=== PATIENT | male | born 1930 | race Caucasian/White ===

== ENCOUNTER 2017-01-23 15:09 | Emergency (ER) | payer SELFPAY | END 2017-01-23 16:30 | disposition left against medical advice (07) | LOC: E/R 15:09 | DX: Z53.21 Procedure and treatment not carried out due to patient leaving prior to being seen by health care provider (principal) ==

== ENCOUNTER 2017-02-04 20:54 | Emergency (ER) | payer MEDICARE, BC ==
[~2017-02-04] VITALS: Ht 167.6 cm; Wt 65.4 kg
[2017-02-04 20:59] VITALS: Ht 167.6 cm; Wt 65.4 kg
--- NOTE | 2017-02-04 22:30 | RADRPT ---
PROCEDURE: CT Brain without contrast. CLINICAL INDICATION: Trauma due to a fall. Headache. TECHNIQUE: A CT of the brain without contrast was performed utilizing axial sections from the skul l base through the vertex. The patient was scanned without intravenous contrast enhancement. Sagitta l and coronal reformatted images were obtained using the data from the axial images. Total exam DLP is 720.23 mGy-cm. CTDIvol is 43.58 mGy. One or more of the following dose reduction techniques were used: Automated exposure control, adjustment of the mA and/or kV according to patient size, use of iterative reconstruction technique. DICOM images are available. COMPARISON: None available. FINDINGS: There is normal [place]-white matter differentiation. There is enlargement of the ventricles and subarachnoid spaces consistent with atrophy. There is decreased attenuation of the periventricular white matter consistent with microangiopathic ischemic change. 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 There is no tatiana dence of recent infarct. There is no intracranial hemorrhage or space-occupying lesion. There are vascular calcifications consistent with atherosclerosis. There is no skull fracture or lytic lesion. IMPRESSION: 1. Atrophy. 2. Microangiopathic ischemic change. 3. Atherosclerosis. 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 5. No intracranial hemorrhage. 6. Otherwise unremarkable noncontrast CT scan of the brain. RPTAT: QQ .William Ly MD, MD Date Time Electronically viewed and signed by .William Ly MD, on 02/04/2017 22:29 .R/
--- NOTE | 2017-02-04 22:39 | RADRPT ---
PROCEDURE: CT Cervical Spine without contrast. CLINICAL INDICATION: Trauma. Neck pain. TECHNIQUE: Helical axial sections were obtained through the cervical spine without intravenous con trast enhancement. Sagittal and coronal reformatted images were accomplished using the data from th e axial images. Total exam DLP is 456.98 mGy-cm. CTDIvol is 22.17 mGy. One or more of the followi ng dose reduction techniques were used: Automated exposure control, adjustment of the mA and/or kV a ccording to patient size, use of iterative reconstruction technique. DICOM images are available. COMPARISON: No prior studies are available for comparison. FINDINGS: There is normal stature and alignment of the vertebrae. There is no fracture. There are degenerative changes with disc space narrowing and osteophytes at C5-6 and C6-7. There is no lytic or blastic lesion. The paravertebral soft tissues are normal. IMPRESSION: 1. Degenerative changes at C5-6 and C6-7. 2. No fracture. 3. Otherwise unremarkable CT scan of the cervical spine. RPTAT: QQ .William Ly MD, MD Date Time Electronically viewed and signed by .William Ly MD, on 02/04/2017 22:38 .R/
[2017-02-04] MEDS ORDERED: ONDANSETRON 4 MG INJ ONE (23:20)
[2017-02-04] MEDS ORDERED: PANTOPRAZOLE 40 MG INJ ONE (23:21)
[2017-02-04] MEDS ORDERED: ONDANSETRON 4 MG INJ IV STA (23:25)
--- NOTE | 2017-02-04 23:27 | ERD ---
ER Documentation Chief Complaint Chief Complaint sp ground level fall face down, facial injuries. no loc HPI 86-year-old male status post ground-level fall. Patient fell face down. No loss conscious. No nausea vomiting or chills. No other current complaints. Mild abrasions noted on the face. Witnessed fall by family. ROS All systems reviewed and are negative except as per history of present illness. Allergies Allergies: Coded Allergies: Uviwqvz-Kfv-Pvz Reductase Inhibitor (Verified Allergy, Unknown, 02/04/17) Sulfa (Sulfonamide Antibiotics) (Verified Allergy, Unknown, 02/04/17) Uncoded Allergies: EGGS, TOMATOES (Allergy, Unknown, 02/04/17) PMhx/Soc Anesthesia Reaction: No Hx Neurological Disorder: Yes (PARKINSONS DISEASE ) Hx Respiratory Disorders: No Hx Cardiac Disorders: No Hx Psychiatric Problems: No Hx Miscellaneous Medical Probl: No Hx Alcohol Use: No Hx Substance Use: No Hx Tobacco Use: No Smoking Status: Never smoker Physical Exam Vitals Vital Signs Date Time Temp Pulse Resp B/P Pulse Ox O2 Delivery O2 Flow Rate FiO2 02/04/17 21:27 98.2 78 20 151/89 98 Room Air 02/04/17 20:59 98.2 71 20 138/64 98 Physical Exam Const: [] Head: Atraumatic Eyes: Normal Conjunctiva ENT: Normal External Ears, Nose and Mouth. Neck: Full range of motion..~ No meningismus. Resp: Clear to auscultation bilaterally Cardio: Regular rate and rhythm, no murmurs Abd: Soft, non tender, non distended. Normal bowel sounds Skin: No petechiae or rashes Back: No midline or flank tenderness Ext: No cyanosis, or edema Neur: Awake and alert Psych: Normal Mood and Affect Results 24 hrs Current Medications Medications (Trade) Dose Ordered Sig/Sommer Route PRN Reason Start Time Stop Time Status Last Admin Dose Admin Acetaminophen/ Hydrocodone Bitart ([place] (5/325)) 1 tab ONCE ONCE PO 02/04/17 23:30 02/04/17 23:31 Ondansetron HCl (Zofran Inj) 4 mg STK-MED ONCE .ROUTE 02/04/17 23:20 02/04/17 23:21 DC Pantoprazole (Protonix Iv) 40 mg STK-MED ONCE .ROUTE 02/04/17 23:21 02/04/17 23:22 DC Procedures/MDM Medical decision-making: Very pleasant patient with mechanical fall. No evidence of intracranial hemorrhage. At this point clinically stable. Patient will be discharged home Departure Diagnosis: Primary Impression: Fall Encounter type: initial encounter Qualified Code: W19.XXXA - Fall, initial encounter Condition: Stable DEJA THOMAS Feb 04, 2017 23:27
[2017-02-04] MEDS ORDERED: HYDROCODONE/APAP (5/325) TAB PO ONE (23:30)
[2017-02-04] MEDS ORDERED: PANTOPRAZOLE 40 MG INJ IV ONE (23:30)
[2017-02-04 23:51] VITALS: BP 141/80; PULSE 80; RESP 19; TEMP 98.2
== END 2017-02-04 23:54 | disposition home or self-care (01) ==
LOC: E/R 20:54
DX: S00.81XA Abrasion of other part of head, initial encounter (principal); G20 Parkinson's disease; W18.39XA Other fall on same level, initial encounter; Y92.9 Unspecified place or not applicable
CPT/HCPCS: 70450; 72125; 96374; 96375; 99285; C9113; J2405

== ENCOUNTER 2017-02-09 14:49 | Emergency (ER) | END 2017-02-09 23:18 | disposition home or self-care (01) ==